=== PATIENT | male | born 1985 | race Caucasian/White ===

== ENCOUNTER 2024-01-29 10:52 | Emergency (ER) | payer OTHER ==
[~2024-01-29] VITALS: Ht 182.9 cm; Wt 81.8 kg
[2024-01-29] MEDS ORDERED: Ketorolac 10 MG TAB PO ONE (11:30)
[2024-01-29] MEDS ORDERED: KETOROLAC10 MG PO (12:34)
[2024-01-29 12:40] VITALS: BP 100/67
== END 2024-01-29 12:40 | disposition home or self-care (01) ==
LOC: ED 10:52
DX: S06.0X0A Concussion without loss of consciousness, initial encounter (principal); W10.9XXA Fall (on) (from) unspecified stairs and steps, initial encounter; Y93.89 Activity, other specified